=== PATIENT | male | born 1945 | race Caucasian/White ===

== ENCOUNTER 2023-01-19 06:49 | Day surgery (SDC) | payer MEDICARE, BC ==
[2023-01-16 09:54] VITALS: BMI 22.8
[2023-01-19] MEDS ORDERED: Bupivacaine PF 0.5% 30 ML VIAL ONE (08:06)
[2023-01-19] MEDS ORDERED: Lidocaine 2% PF 5 ML VIAL ONE (08:06)
[2023-01-19] MEDS ORDERED: PROPOFOL 20 ML ONE (08:06)
[2023-01-19] MEDS ORDERED: Acetaminophen 500 MG TAB ONE (08:41)
[2023-01-19] MEDS ORDERED: fentaNYL PF 100 MCG/2 ML SYRINGE ONE (09:18)
[2023-01-19] MEDS ORDERED: Sodium Chloride 0.9% 100 ML ONE (09:30)
[2023-01-19] MEDS ORDERED: CEFAZOLIN 2 GM VIAL ONE (09:30)
[2023-01-19] MEDS ORDERED: PROPOFOL 200 MG/20 ML VIAL ONE (09:43)
[2023-01-19] MEDS ORDERED: GLYCOPYRROLATE/PF 0.2 MG/ML VIAL ONE (09:43)
[2023-01-19] MEDS ORDERED: Ondansetron PF 4 MG/2 ML Vial ONE (09:43)
[2023-01-19] MEDS ORDERED: Dexamethasone 20 MG/5 ML VIAL ONE (09:43)
[2023-01-19] MEDS ORDERED: Lidocaine 1% PF 5 ML VIAL ONE (09:43)
[2023-01-19] MEDS ORDERED: fentaNYL 50 mcg/mL 1 mL Vial ONE ×4 (10:15→11:15)
[2023-01-19] MEDS ORDERED: Ketorolac Tromethamine 30 MG/ML VIAL ONE (10:48)
== END 2023-01-19 12:20 | disposition home or self-care (01) ==
LOC: SDC 06:49
PROVIDERS: ATTEND Orthopaedic Surgery
PROC: 0SJC4ZZ Inspection of Right Knee Joint, Percutaneous Endoscopic Approach (ICD-10-PCS; principal; 2023-01-19)
DX: S83.231A Complex tear of medial meniscus, current injury, right knee, initial encounter (principal); M94.261 Chondromalacia, right knee; I10 Essential (primary) hypertension; Z87.891 Personal history of nicotine dependence; Z79.899 Other long term (current) drug therapy; X58.XXXA Exposure to other specified factors, initial encounter
CPT/HCPCS: 29881; J3010; J3490; J1100; J1885; J2001; J2405; J2704; S0020